=== PATIENT | male | born 1965 | race Caucasian/White ===

== ENCOUNTER 2018-03-13 06:46 | Day surgery (SDC) | payer OTHER ==
[~2018-03-13] VITALS: Ht 180.3 cm; Wt 106.6 kg
[~2018-03-13 06:46] MED LIST: AMLODIPINE5 MG PO; CALCIUM600 M3 PO; LEVOTHYROXIN125 MCG PO; LOSARTAN POTASS50 MG PO; MULTI VIT PO; RANITIDINE150 M1 PO; SELENIUM200 MC1 PO; VITAMIN D35000 UNIT PO
[2018-03-13 09:09] VITALS: BP 99/58
[2018-03-13] MEDS ORDERED: MOTRIN800 MG PO (09:19)
== END 2018-03-13 09:30 | disposition home or self-care (01) | DRG 572 ==
LOC: ORM 06:46
PROVIDERS: ATTEND Surgery
PROC: 0JBD0ZZ Excision of Right Upper Arm Subcutaneous Tissue and Fascia, Open Approach (ICD-10-PCS; principal; 2018-03-13)
DX: D17.21 Benign lipomatous neoplasm of skin and subcutaneous tissue of right arm (principal)

== ENCOUNTER → 2018-04-19 | Outpatient (REF) | payer OTHER ==
[~2018-04-19] MED LIST changes: +MOTRIN800 MG PO
== END | disposition home or self-care (01) | DRG 645 ==
LOC: LAB 09:07
PROVIDERS: ATTEND Obstetrics & Gynecology
DX: E29.1 Testicular hypofunction (principal); E34.9 Endocrine disorder, unspecified; R53.83 Other fatigue; R68.82 Decreased libido; Z12.5 Encounter for screening for malignant neoplasm of prostate